=== PATIENT | female | born 1995 | race Caucasian/White ===

== ENCOUNTER 2019-04-10 18:16 | Emergency (ER) | payer OTHER ==
[~2019-04-10] VITALS: Ht 162.6 cm; Wt 68.2 kg
[2019-04-10 18:24] VITALS: BP 133/93; TEMP 98.6
[2019-04-10] MEDS ORDERED: AMOXICILLIN 8751 TAB PO (21:13)
[2019-04-10] MEDS ORDERED: NORCO 325 MG-51 TAB PO (21:13)
[2019-04-10 21:38] VITALS: PULSE 89
== END 2019-04-10 21:38 | disposition home or self-care (01) ==
LOC: COL.ER 18:16
DX: S01.81XA Laceration without foreign body of other part of head, initial encounter (principal); S01.25XA Open bite of nose, initial encounter; W54.0XXA Bitten by dog, initial encounter
CPT/HCPCS: J2060; J3010